=== PATIENT | female | born 1960 | race Caucasian/White ===

== ENCOUNTER 2024-08-11 10:58 | Outpatient (AMB) | payer OTHER, SELFPAY ==
[2024-08-11 11:02] VITALS: BP 122/68; PULSE 92; O2SAT 96; BMI 25.7
--- NOTE | 2024-08-11 11:02 | HO.NEPHOV_ITS ---
Vital Signs 08/11/24 11:02 Height 5 ft 1 in Weight 136 lb BMI 25.7 BP 122/68 Blood Pressure Location Lt brachial Position Sitting Pulse 92 Pulse Source Pulse Oximeter Pulse Oximetry (%) 96 Oxygen Delivery Method Room Air Intake Visit Reasons: Previous patient Therapeutic Dietitian Required: No Accompanied by: Self / Same As Patient Allergies No Known Allergies Allergy (Verified 08/11/24 11:03) Medication List - Last Reconciled 08/11/24 by Fan Courtney MD ascorbic acid (vitamin C) mg PO DAILY calcium carbonate 600 mg PO DAILY cholecalciferol (vitamin D3) 25 mcg PO DAILY omega-3 fatty acids 1,000 mg PO DAILY sulfamethoxazole-trimethoprim 800-160 mg 1 tab PO 3XW HPI Comments Details: Deja is a pleasant 64-year-old woman with a history of GPA/Elizabeth's granulomatosis She has been receiving Rituxan yearly. She has a history of mononeuritis multiplex and sinusitis with arthralgia. In 2018 she was hospitalized with mononeuritis symptoms and positive ANCA and PR3. Creatinine was normal at 0.6. Urine sediments were benign. She was initially treated with steroids and rituximab. Subsequently she was having her follow-up in [place] [facility] Family History Father Kidney disease Diabetes Hypertension Review of Systems Const Denies fever(s) and Denies weight loss Card Denies chest pain Resp Denies cough and Denies hemoptysis GI Denies abdominal pain, Denies diarrhea and Denies nausea Musc Denies back pain Neuro Denies focal weakness Physical Exam Vital Signs: Last Vital Signs Pulse 92 08/11/24 11:02 BP 122/68 08/11/24 11:02 Pulse Ox 96 08/11/24 11:02 Oxygen Delivery Method Room Air 08/11/24 11:02 BMI result Body Mass Index 25.7 Comfortable Neck supple no JVD. Lungs entry equal no rales. Heart S1-S2 heard no gallop or rub. Abdomen soft nontender. Neuro alert awake oriented. No asterixis. Extremities no edema. Results Reviewed Results Reviewed: Recent urinalysis was benign without any RBCs or protein Nephrology Results: No Data to Display Assessment & Plan Assessment & Plan (1) Granulomatosis with polyangiitis with vasculitis: Code(s): M31.30 - Elizabeth's granulomatosis without renal involvement; I77.6 - Arteritis, unspecified Category: Medical Plan Overall remained stable. No renal involvement. Recent urinalysis did not reveal any RBCs or protein. Serum creatinine is stable and stays less than 0.9 mg/dL. She will continue with the Rituxan Yearly in follow up in [place] Orders: Orders UA and rflx microscopic 1 Year N18.9 - Chronic kidney disease, unspecified Creatinine Urine 1 Year N18.9 - Chronic kidney disease, unspecified Comprehensive Met. Panel 1 Year N18.9 - Chronic kidney disease, unspecified Total Protein Urine Random 1 Year N18.9 - Chronic kidney disease, unspecified Coding Level of Care Code Est Pt Level 4 (81264) Diagnoses Granulomatosis with polyangiitis with vasculitis M31.30; I77.6
--- OUTSIDE RECORDS SUMMARY | 2024-08-11 13:38 | XMS_ITS | Clinical Summary ---
Author Organization [facility] Address [address] [place] [address] Phone Care Team Providers Care Horse Rider Name Role Phone Unavailable Primary Care Provider Unavailabl e Allergies No known active allergies Medications ascorbic acid (VITAMIN C) 500 MG CR capsule Take 1 capsule by mouth 1 (one) time each day Active cholecalciferol (VITAMIN D-3) 25 MCG (1000 UT) capsule 1 capsule 1 (one) time each day Active sulfamethoxazol e-trimethoprim 800-160 MG per tablet TAKE 1 TABLET BY MOUTH 3 TIMES EVERY WEEK 03/30/2021 Active calcium carbonate 1500 (600 Ca) MG tablet Take 2 tablets by mouth daily Active [place]-3 1000 MG capsule Take 1 capsule by mouth daily Active Turmeric 400 MG capsule Take by mouth daily Active Multiple Vitamin (MULTIVITAMIN ADULT PO) Take 1 tablet by mouth daily Active riTUXimab (RITUXAN IV) Infuse into a venous catheter Active Active Problems Problem Noted Date Diagnosed Date Vasculitis 03/13/2023 Microscopic hematuria 12/23/2020 Mononeuritis multiplex 12/23/2020 Resolved Problems Problem Noted Date Diagnosed Date Resolved Date Hypertensive disorder 12/23/20202022 Immunizations Name Administration Dates Next Due Influenza, Unspecified 04/04/2021,03/16/2021 Family History Medical History Relation Comments Diabetes Father Hypertension Father Kidney disease Father Cancer Sibling uterine Relation Status Comments Father Unknown Mother Unknown Sibling Social History Tobacco Use Types Packs/Day Years Used Date Smoking Tobacco: Never Smokeless Tobacco: Never Tobacco Cessation:Counseling Given: Not Answered Alcohol Use Standard Drinks/Week Comments No 0 (1 standard drink = 0.6 oz pur e alcohol) Comments Unknown Sex and Gender Information Value Date Recorded Sex Assigned at Not on file Legal Sex Female 4:54 PM EST Gender Identity Not on file Sexual Orientation Not on file Last Filed Vital Signs Vital Sign Reading Time Taken Comments Blood Pressure 130/70 03/13/2023 1:03 PM EDT Pulse 76 03/13/2023 1:03 PM EDT Temperature - - Respiratory Rate - - Oxygen Saturation 97% 04/05/2022 10:42 AM EDT Inhaled Oxygen Concentration - - Weight 60.8 kg (134 lb) 03/13/2023 1:03 PM EDT Height 157.5 cm (5' 2 ) 04/05/2022 10:42 AM EDT Body Mass Index 24.51 04/05/2022 10:42 AM EDT Plan of Treatment Health Maintenance Due Date Last Done Comments Breast Cancer Screening 1961 Pneumococcal Vaccine: Pediatrics (0 to 5 Years) and At-Risk Patients (6 to 64 Years) (1 of 2 - PCV) 1967 Colorectal Cancer Screening: Annual FOBT 2010 Colorectal Cancer Screening: Colonoscopy 2010 Colorectal Cancer Screening: Sigmoidoscopy 2010 Influenza Vaccine (#1) 2024 1, 03/16/2021 Hepatitis B Vaccine Aged Out No longe r eligible based on patient's age to complete this topic [facility]
== END 2024-08-11 11:19 | disposition home or self-care (01) ==
PROVIDERS: PCP Internal Medicine; Visit Provider Internal Medicine Hypertension Specialist
DX: M31.30 Wegener's granulomatosis without renal involvement (principal); I77.6 Arteritis, unspecified
CPT/HCPCS: 99214

== ENCOUNTER → 2024-08-11 10:58 | Outpatient (BNVA) | payer OTHER, SELFPAY | PROVIDERS: PCP Internal Medicine; Visit Provider Internal Medicine Hypertension Specialist ==